=== PATIENT | female | born 1990 | race Caucasian/White ===

== ENCOUNTER → 2016-12-23 | Emergency (ER) | payer OTHER, MEDICAID ==
[~2016-12-23] MED LIST: LACTATED RINGER'S 1000 ML INJ 1,000 ML IV SCH; ONDANSETRON ODT 4 MG TAB PO PRN; SODIUM CHLORIDE 0.9% FLUSH 10 ML FLUSH IV FLUSH PRN; SODIUM CHLORIDE 0.9% FLUSH 10 ML FLUSH IV FLUSH SCH; ZOLPIDEM TARTRATE 5 MG TAB PO PRN
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
== END | disposition home or self-care (01) ==
LOC: HOBED 16:29
DX: O9A.212 Injury, poisoning and certain other consequences of external causes complicating pregnancy, second trimester (principal); S80.11XA Contusion of right lower leg, initial encounter; Z3A.25 25 weeks gestation of pregnancy; V43.62XA Car passenger injured in collision with other type car in traffic accident, initial encounter; Y92.488 Other paved roadways as the place of occurrence of the external cause
CPT/HCPCS: 76816; 86850; 86900; 86901